=== PATIENT | female | born 1960 ===

== ENCOUNTER 2023-11-03 16:17 | Outpatient (OUT) | payer OTHER, SELFPAY ==
--- NOTE | 2023-11-03 | MM_ITS ---
Patient Name: ALO HEREDIA MR#: [id number] : 1960 Exam Date: 11/03/2023 Ordering Doctor: DR JUAN DUNHAM M.D. RADIOLOGY REPORT PROCEDURE: MM TOMOSYNTHESIS SCREENING BI COMPARISON: None. INDICATIONS: Lavon Screening Mammogram Calculator Name NCI Breast Cancer Risk Assessment Tool 5 Year Breast Cancer Risk 1.10% Lifetime Breast Cancer Risk 5.20% Personal Breast Cancer No Personal Ovarian Cancer No Treatments None Family Cancers Father with throat/lung cancer at age 70; Mother with lung cancer at age 75. LOCATION: The [facility] BREAST COMPOSITION: There are scattered areas of fibroglandular density. FINDINGS: DIAGNOSTIC CATEGORY 2--BENIGN FINDING: Scattered benign-appearing calcifications are present. Scattered benign-appearing lymph nodes are present. RIGHT BREAST: No significant suspicious finding. LEFT BREAST: No significant suspicious finding. RECOMMENDATIONS: ROUTINE MAMMOGRAM AND CLINICAL EVALUATION IN 12 MONTHS. PLEASE NOTE: A NORMAL MAMMOGRAM DOES NOT EXCLUDE THE POSSIBILITY OF BREAST CANCER. A CLINICALLY SUSPICIOUS PALPABLE LUMP SHOULD BE BIOPSIED. Dictated by: Sohail Santana MD on 11/24/2023 at 15:19 Approved by: Sohail Santana MD on 11/24/2023 at 15:21
== END 2023-11-03 16:18 | disposition home or self-care (01) ==
LOC: MAMMO 16:17
PROVIDERS: PCP Family Medicine; Visit Provider Family Medicine
DX: Z12.31 Encounter for screening mammogram for malignant neoplasm of breast (principal); Z80.1 Family history of malignant neoplasm of trachea, bronchus and lung; Z80.8 Family history of malignant neoplasm of other organs or systems
CPT/HCPCS: 77063; 77067

== ENCOUNTER 2024-03-21 16:30 | Outpatient (OUT) | payer OTHER, SELFPAY ==
--- NOTE | 2024-03-21 | XR_ITS ---
The [address] [address] Patient Name: ALO HEREDIA MRN: [id number] date: 1960 Sex: F Assigned Patient Location: [facility] Current Patient Location: Accession/Order Number: [id number] Exam Date: 03/21/2024 16:50 Report Date: 03/23/2024 07:23 At the request of: ALO BETHEA Procedure: XR ankle LT min 3V PROCEDURE: XR ankle LT min 3V COMPARISON: None. HISTORY: swollen left ankle FINDINGS: BONES:No fracture, acute abnormality, or significant arthropathy. SOFT TISSUES:Lateral ankle soft tissue swelling EFFUSION:Small joint effusion OTHER: Negative. XR/XR ankle LT min 3V IMPRESSION: Soft tissue swelling, no acute fracture Electronically authenticated by: SCOTT MOSELEY Date: 03/23/2024 07:23
--- OUTSIDE RECORDS SUMMARY | 2024-03-21 16:38 | XMS_ITS | CCD ---
Author Organization [facility] LICENSED REACTOR OPERATOR [facility] Care Team Providers Care Corporate Event Planner Name Role Phone JUAN DUNHAM Attending Unavailable Encounters Encounter Date Encounter Type Care Provider Facility Start: 12-15-2023 End: 12-15-2023 ambulatory JUAN DUNHAM Not Available Payers Date Payer Category Payer Private Health Insurance [id number] 1960 Unknown [id number] Summary Purpose Family History No Family History Records Found Advance Directives No Advanced Directives Records Found Additional Source Comments INFORMATION SOURCE (unrecogn ized section and content) DATE CREATED AUTHOR 12/18/2023 [facility] EPIC FOR RECORDS PERTAINING TO PATIENTS WHO ARE OR HAVE BEEN ENROLLED IN A CHEMICAL DEPENDENCY/SUBSTANCEABUSE PROGRAM, SOME INFORMATION MAY BE OMITTED. This clinical summary was aggregated from multiple sources. Caution should be exercised in using it in the provision of clinical care. This summary normalizes information from multiple sources, and as a consequence, information in this document may materially change the coding, format and clinical context of patient data. In addition, data may be omitted in some cases. CLINICAL DECISIONS SHOULD BE BASED ON THE PRIMARY CLINICAL RECORDS. [facility] [employer] ([email or web address]). provides no warranty or guarantee of the accuracy or completeness of information in this document.
== END 2024-03-21 16:31 | disposition home or self-care (01) ==
LOC: RAD 16:32
PROVIDERS: PCP Family Medicine; Visit Provider Physician Assistant
DX: M25.472 Effusion, left ankle (principal); M25.572 Pain in left ankle and joints of left foot
CPT/HCPCS: 73610

== ENCOUNTER 2024-11-03 15:56 | Outpatient (OUT) | payer OTHER, SELFPAY ==
--- NOTE | 2024-11-03 15:58 | MM_ITS ---
Patient Name: ALO HEREDIA MR#: [id number] : 1960 Exam Date: 11/03/2024 Ordering Doctor: DR JUAN DUNHAM M.D. RADIOLOGY REPORT PROCEDURE: MM TOMOSYNTHESIS SCREENING BI COMPARISON: MM TOMOSYNTHESIS SCREENING BI, 11/03/2023. INDICATIONS: Screening for malignant neoplasm Calculator Name NCI Breast Cancer Risk Assessment Tool 5 Year Breast Cancer Risk 1.10% Lifetime Breast Cancer Risk 5.00% Personal Breast Cancer No Personal Ovarian Cancer No Treatments None Family Cancers Father with throat/lung cancer at age 70; Mother with lung cancer at age 75. LOCATION: [facility] BREAST COMPOSITION: There are scattered areas of fibroglandular density. FINDINGS: RIGHT BREAST: No significant suspicious finding. LEFT BREAST: No significant suspicious finding. DIAGNOSTIC CATEGORY 1--NEGATIVE. RECOMMENDATIONS: ROUTINE MAMMOGRAM AND CLINICAL EVALUATION IN 12 MONTHS. PLEASE NOTE: A NORMAL MAMMOGRAM DOES NOT EXCLUDE THE POSSIBILITY OF BREAST CANCER. A CLINICALLY SUSPICIOUS PALPABLE LUMP SHOULD BE BIOPSIED. Dictated by: Contreras Goodman DO on 11/03/2024 at 16:19 Approved by: Contreras Goodman DO on 11/03/2024 at 16:23
--- OUTSIDE RECORDS SUMMARY | 2024-11-03 16:00 | XMS_ITS | Encounter Summary ---
Author Organization [facility] Address [address] [place] [address] Care Team Providers Care Certified Professional Midwife Name Role Phone Obdulio Stauffer MD Primary Care Provider [phone] Encounter Details Date Type Department Care Team (Late st Contact Info) Description 01/12/2024 Abstract [facility] [address] [facility] [address] [place] [address] Obdulio Stauffer MD [address] [facility] 110 [place], [place] [id number] Social History Tobacco Use Types Packs/Day Years Used Date Smoking Tobacco: Never Smokeless Tobacco: Never Alcohol Use Standard Drinks/Week Comments Never 0 (1 standard drink = 0.6 oz pur e alcohol) B1300 Health Literacy Answer Date Recor ded How often do you need to hav e someone help you when you read instructions, pamphlets, or other written material from your doctor or pharmacy? Never 12/11/2023 Social Connection and Isolat ion Panel [NHANES] Answer Date Recorded In a typical week, how many times do you talk on the phone with family, friends, or neighbors? More than three times a week 12/11/2023 How often do you get togethe r with friends or relatives? Three times a week 12/11/2023 How often do you attend chur ch or mandaeism services? 1 to 4 times per year 12/11/2023 Do you belong to any clubs o r organizations such as buddhist groups, unions, fraternal or athletic groups, or school groups? Yes 12/11/2023 How often do you attend meet ings of the clubs or organizations you belong to? 1 to 4 times per year 12/11/2023 Are you , , di vorced, , never , or living with a partner? 12/11/2023 AUDIT-C Answer Date Recorded Q1: How often do you have a drink containing alcohol? Never 12/11/2023 Q2: How many drinks containi ng alcohol do you have on a typical day when you are drinking? Patient does not drink Q3: How often do you have si x or more drinks on one occasion? Never 12/11/2023 Overall Financial Resource Strain (CARDIA) Answe r Date Recorded How hard is it for you to pa y for the very basics like food, housing, medical care, and heating? Not very hard 12/11/2023 [facility] of Occupat ional Health - Occupational Stress Questionnaire Answer Date Recorded Do you feel stress - tense, restless, nervous, or anxious, or unable to sleep at night because your mind is troubled all the time - these days? Not at all 12/11/2023 Exercise Vital Sign Answer Date Recorde d On average, how many days pe r week do you engage in moderate to strenuous exercise (like a brisk walk)? 3 days 12/11/2023 On average, how many minutes do you engage in exercise at this level? 20 min 12/11/2023 Hunger Vital Sign Answer Date Recorded Within the past 12 months, y ou worried that your food would run out before you got the money to buy more. Never true 12/11/19 24 Within the past 12 months, t he food you bought just didn't last and you didn't have money to get more. Never true 12/11/2023 PRAPARE - Transportation Answer Date Re corded In the past 12 months, has l ack of transportation kept you from medical appointments or from getting medications? No 11/16 In the past 12 months, has l ack of transportation kept you from meetings, work, or from getting things needed for daily living? No 12/11/2023 Housing Stability Vital Sign Answer Olaf e Recorded In the last 12 months, was t here a time when you were not able to pay the mortgage or rent on time? No 12/11/2023 Number of Times Moved in the Last Year Not on fi le 12/11/2023 At any time in the past 12 m [facility], were you homeless or living in a nursing home (including now)? No 12/11/2023 Comments Unknown Sex and Gender Information Value Date Recorded Sex Assigned at Not on file Legal Sex Female 11:48 PM EDT Gender Identity Not on file Sexual Orientation Not on file documented as of this encounter Plan of Treatment Not on file documented as of this encounter Visit Diagnoses Not on filedocumented in this encounter Care Teams Certified Professional Midwife Relationship Specialty Start Date End Date Obdulio Stauffer MD [address] [place] [id number] PCP - General Family Medicine 09/23/22 documented as of this encounter
--- OUTSIDE RECORDS SUMMARY | 2024-11-03 16:00 | XMS_ITS | Clinical Summary ---
Author Organization [facility] Address [address] [place] [address] Care Team Providers Care Stations Superintendent Name Role Phone Obdulio Dunham MD Primary Care Provider [phone] Allergies No known active allergies Medications rosuvastatin (Crestor) 20 MG tabletIndications:Hyperl ipidemia, unspecified hyperlipidemia type Take 1 tablet (20 mg) by mouth 1 (one) time each day at the same time 360 tablet 12/15/19 24 025 Active baclofen (Lioresal) 10 MG tabletIndications:Tensio n headache Take 1 tablet (10 mg) by mouth in the morning and 1 tablet (10 mg) in the evening and 1 tablet (10 mg) before bedtime. 90 tablet 07/04/19 25 Active ezetimibe (Zetia) 10 MG tabletIndications:Pure hypercholesterolemia Take 1 tablet (10 mg) by mouth Daily 30 tablet 5 09/23/19 25 025 Active Active Problems Problem Noted Date Diagnosed Date Chronic nonintractable headache 07/04/2024 Family history of neoplasm of brain 07/04/2024 Tension headache 07/04/2024 Encounter for well adult exam without abnormal f indings 12/15/2023 Assessment & Plan (12/15/2023 4:16 PM EDT): Modest Alcohol consumption No Tobacco Seat Belt use Exercise Regularly No Text Drive Social Accountability Vitamin D and calcium Vitamin D 400 international units, 2000 international units, 5000IUnits Folic Acid B12 Blood count energy Hyperlipidemia 10/20/2023 Assessment & Plan (12/15/2023 4:09 PM EDT): This is a chronic medical condition that is stable since last assessment. No changes in treatment are suggested at this time. Continue Current meds. 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 Resolved Problems Problem Noted Date Diagnosed Date Resolved Date Encounter for vitamin deficiency screening 01/11/2024 01/11/2024 Encounters Date Type Department Care Team Description 09/19/2024 Telephone [facility] [address] [facility] [address] [place] [address] Obdulio Dunham MD from Last 3 Months Family History Medical History Relation Name Comments No Known Problems Daughter Lung cancer Father Hypertension Mother Lung cancer Mother No Known Problems Son 1 No Known Problems Son 2 Relation Name Status Comments Daughter Alive Father Mother Son 1 Alive Son 2 Alive Social History Tobacco Use Types Packs/Day Years [...] 12/11/2023 How often do you attend chur or christian services? 1 to 4 times per year 12/11/2023 Do you belong to any clubs o r organizations such as samaritan groups, unions, fraternal or athletic groups, or [...] care, and heating? Not very hard 12/11/2023 [facility] of Occupat ional Health - Occupational Stress [...] any time in the past 12 m [facility], were you homeless or living in a jail (including now)? No 12/11/2023 Comments Unknown Sex and Gender Information Value Date Recorded Sex Assigned at Not on file Legal Sex Female 11:48 PM EDT Gender Identity Not on file Sexual Orientation Not on file Last Filed Vital Signs Vital Sign Reading Time Taken Comments Blood Pressure 128/70 07/04/2024 2:51 PM EST Pulse 90 07/04/2024 2:51 PM EST Temperature - - Respiratory Rate 16 12/15/2023 4:02 PM EDT Oxygen Saturation 98% 07/04/2024 2:51 PM EST Inhaled Oxygen Concentration - - Weight 72.1 kg (159 lb) 07/04/2024 2:51 PM EST Height 162.6 cm (5' 4 ) 07/04/2024 2:51 PM EST Body Mass Index 27.29 07/04/2024 2:51 PM EST Plan of Treatment Health Maintenance Due Date Last Done Comments CT Colonography 1960 Colonoscopy 1960 Colorectal Cancer Screening 1960 FIT-DNA 1962 FIT 1962 FOBT 1960 Sigmoidoscopy 1960 Pap Smear 1983 Cervical Cancer Screening 1992 HPV/Cotest 1992 Mammogram 11/23/2024 11/24/2023, 04/17, 12/06/2019 Influenza Vaccine (Season Ended) 2025 Procedures Procedure Name Priority Date/Time Associated Diagnosis Comments MM TOMOSYNTHESIS SCREENING BI 11/24/2023 3:21 PM EDT from Last 3 Months or Most Recently Relevant to Health Maintenance Results * MM TOMOSYNTHESIS SCREENING BI (11/24/2023 3:21 PM EDT) Anatomical Region Laterality Modality Other 11/24/2023 3:21 PM EDT Narrative 11/24/2023 3:22 [place] [address] Mammography Report Signed Patient: Alo Heredia MR#: [id number] : 1960 Acct:[id number] Age/Sex: 63 / F ADM Date: 11/03/23 Loc: MAMMO Attending Dr: OBDULIO DUNHAM Ordering Physician: OBDULIO DUNHAM Results: Date of Service: 11/03/23 Follow Up: Procedure(s): MM tomosynthesis screening BI Accession Number(s): [id number] cc: OBDULIO DUNHAM Patient Name: ALO HEREDIA MR#: [id number] : 1960 Exam Date: 11/03/2023 Ordering Doctor: DR OBDULIO DUNHAM M.D. RADIOLOGY REPORT PROCEDURE: MM TOMOSYNTHESIS SCREENING BI COMPARISON: None. INDICATIONS: Lavon Screening Mammogram Calculator Name NCI Breast Cancer Risk Assessment Tool 5 Year Breast Cancer Risk 1.10% Lifetime Breast Cancer Risk 5.20% Personal Breast Cancer No Personal Ovarian Cancer No Treatments None Family Cancers Father with throat/lung cancer at age 70; Mother with lung cancer at age 75. LOCATION: The [facility] [place] BREAST COMPOSITION: There are scattered areas of fibroglandular density. FINDINGS: DIAGNOSTIC CATEGORY 2--BENIGN FINDING: Scattered benign-appearing calcifications are present. Scattered benign-appearing lymph nodes are present. RIGHT BREAST: No significant suspicious finding. LEFT BREAST: No significant suspicious finding. RECOMMENDATIONS: ROUTINE MAMMOGRAM AND CLINICAL EVALUATION IN 12 MONTHS. PLEASE NOTE: A NORMAL MAMMOGRAM DOES NOT EXCLUDE THE POSSIBILITY OF BREAST CANCER. A CLINICALLY SUSPICIOUS PALPABLE LUMP SHOULD BE BIOPSIED. Dictated by: Sohail Santana MD on 11/24/2023 at 15:19 Approved by: Sohail Santana MD on 11/24/2023 at 15:21 Dictated By: Sohail Santana M.D. Signed By: 11/24/23 1522 DD/ 1521 TD/TT: Biological Aide: Procedure Note Radiology, Radiologist, - 11/24/2023 [place] [address] Mammography Report Signed Patient: Alo HerediaMR#: [id number] : 1960cct:[id number] Age/Sex: 63 / FADM Date: 11/03/23 Loc: MAMMO Attending Dr: OBDULIO DUNHAM Ordering Physician: Ricardo DUNHAMults: Date of Service: 11/03/23Follow Up: Procedure(s): MM tomosynthesis screening BI Accession Number(s): [id number] cc: OBDULIO DUNHAM Patient Name: ALO HEREDIA MR#: [id number] : 1960 Exam Date: 11/03/2023 Ordering Doctor: DR OBDULIO DUNHAM M.D. RADIOLOGY REPORT PROCEDURE: MM TOMOSYNTHESIS SCREENING BI COMPARISON: None. INDICATIONS: Lavon Screening Mammogram Calculator Name NCI Breast Cancer Risk Assessment Tool 5 Year Breast Cancer Risk 1.10% Lifetime Breast Cancer Risk 5.20% Personal Breast Cancer No Personal Ovarian Cancer No Treatments None Family Cancers Father with throat/lung cancer at age 70; Mother withlung cancer at age 75. LOCATION: [facility] [place] BREAST COMPOSITION: There are scattered areas of fibroglandulardensity. FINDINGS: DIAGNOSTIC CATEGORY 2--BENIGN FINDING: Scattered benign-appearing calcifications are present. Scattered benign-appearing lymph nodes are present. RIGHT BREAST: No significant suspicious finding. LEFT BREAST: No significant suspicious finding. RECOMMENDATIONS: ROUTINE MAMMOGRAM AND CLINICAL EVALUATION IN 12 MONTHS. PLEASE NOTE: A NORMAL MAMMOGRAM DOES NOT EXCLUDE THE POSSIBILITY OFBREAST CANCER. A CLINICALLY SUSPICIOUS PALPABLE LUMP SHOULD BE BIOPSIED. Dictated by: Sohail Santana MD on 11/24/2023 at 15:19 Approved by: Sohail Santana MD on 11/24/2023 at 15:21 Dictated By: Sohail Santana M.D. Signed By:11/24/23 1522 DD/ 1521 TD/TT: Biological Aide: Obdulio Dunham MD [facility] Final Result from Last 3 Months or Most Recently Relevant to Health Maintenance Insurance [employer] Care Teams Stations Superintendent Relationship Specialty Start Date End Date Obdulio Dunham MD [address] [place] [address] [place] [address] PCP - General Family Medicine 09/23/22
--- OUTSIDE RECORDS SUMMARY | 2024-11-03 16:00 | XMS_ITS | Encounter Summary ---
Author Organization [facility] Address [address] [place] [address] Care Team Providers Care Bronc Buster Name Role Phone Obdulio Stauffer MD Primary Care Provider [phone] Encounter Details Date Type Department Care Team (Late st Contact Info) Description 03/23/2024 Orders Only [facility] [address] [facility] [address] [place] [id number] Migdalia Wheatley, PA [address] [facility] [address] [place] [address] Swollen L ankle; Acute left ankle pain Social History Tobacco Use Types Packs/Day Years [...] often do you attend chur ch or rastafarian services? 1 to 4 times per year 12/11/2023 Do you belong to any clubs o r organizations such as shinto groups, unions, fraternal or athletic groups, or [...] care, and heating? Not very hard 12/11/2023 [facility] of Occupat ional Health - Occupational Stress [...] any time in the past 12 m [facility], were you homeless or living in a penitentiary (including now)? No 12/11/2023 Comments Unknown Sex and Gender Information Value Date Recorded Sex Assigned at Not on file Legal Sex Female 11:48 PM EDT Gender Identity Not on file Sexual Orientation Not on file documented as of this encounter Plan of Treatment Not on file documented as of this encounter Procedures Procedure Name Priority Date/Time Associated Diagnosis Comments XR ANKLE 3+ VIEWS LEFT Routine 2024 Swollen L ankle Acute left ankle pain documented in this encounter Results * XR ankle 3+ views left (2024) 2024 Narrative Migdalia Wheatley PA - 03/23/2024 9:39 AM EST Soft tissue swelling, no acute fracture us Migdalia FLORES IMG XR PROCEDURES Final Result documented in this encounter Visit Diagnoses Diagnosis Swollen L ankle Effusion of ankle and foot joint Acute left ankle pain documented in this encounter Care Teams Bronc Buster Relationship Specialty Start Date End Date Obdulio Stauffer MD [address] [place] [address] PCP - General Family Medicine 09/23/22 documented as of this encounter
--- OUTSIDE RECORDS SUMMARY | 2024-11-03 16:00 | XMS_ITS | Encounter Summary ---
Author Organization [facility] Address [address] [place] [address] Care Team Providers Care Market Research Lead Name Role Phone Obdulio Dunham MD Primary Care Provider [phone] Encounter Details Date Type Department Care Team (Late st Contact Info) Description 03/23/2024 [facility] Result Encounter [facility] External Department Unsolicited Alo Wheatley, PA [address] [facility] [address] [place] [address] Social History Tobacco Use Types Packs/Day Years [...] often do you attend chur ch or hindu services? 1 to 4 times per year 12/11/2023 Do you belong to any clubs o r organizations such as restorationism groups, unions, fraternal or athletic groups, or [...] care, and heating? Not very hard 12/11/2023 [facility] of Occupat ional Health - Occupational Stress [...] any time in the past 12 m [facility], were you homeless or living in a prison (including now)? No 12/11/2023 Comments Unknown Sex and Gender Information Value Date Recorded Sex Assigned at Not on file Legal Sex Female 11:48 PM EDT Gender Identity Not on file Sexual Orientation Not on file documented as of this encounter Plan of Treatment Not on file documented as of this encounter Procedures Procedure Name Priority Date/Time Associated Diagnosis Comments XR ANKLE LT MIN 3V 03/23/2024 7: 23 AM EST documented in this encounter Results * XR ANKLE LT MIN 3V (03/23/2024 7:23 AM EST) Anatomical Region Laterality Modality Other 03/23/2024 7:23 AM EST Narrative 03/23/2024 7:26 [place] [address] XRay Report Signed Patient: ALO HEREDIA MR#: [id number] : 1960 Acct:[id number] Age/Sex: 64 / F ADM Date: 03/21/24 Loc: RAD Attending Dr: ALO WHEATLEY Ordering Physician: ALO WHEATLEY Date of Service: 03/21/24 Procedure(s): XR ankle LT min 3V Accession Number(s): [id number] cc: OBDULIO DUNHAM ; ALO WHEATLEY [place] [address] Patient Name: ALO HEREDIA MRN: [id number] date: 1960 Sex: F Assigned Patient Location: RAD Current Patient Location: Accession/Order Number: [id number] Exam Date: 2024 16:50 Report Date: 03/23/2024 07:23 At the request of: ALO WHEATLEY Procedure: XR ankle LT min 3V PROCEDURE: XR ankle LT min 3V COMPARISON: None. HISTORY: swollen left ankle FINDINGS: BONES:No fracture, acute abnormality, or significant arthropathy. SOFT TISSUES:Lateral ankle soft tissue swelling EFFUSION:Small joint effusion OTHER: Negative. XR/XR ankle LT min 3V IMPRESSION: Soft tissue swelling, no acute fracture Electronically authenticated by: SCOTT MOSELEY Date: 03/23/2024 07:23 Dictated By: Scott Moseley M.D. Signed By: 03/23/24725 DD/ 2 TD/TT: Functional Tester: Procedure Note Radiology, Radiologist, - 03/23/2024 [place] [address] XRay Report Signed Patient: ALO HEREDIA SMR#: [id number] : 1960cct:[id number] Age/Sex: 64 / FADM Date: 03/21/24 Loc: [facility] Attending Dr: ALO WHEATLEY Ordering Physician: ALO WHEATLEY Date of Service: 03/21/24 Procedure(s): XR ankle LT min 3V Accession Number(s): [id number] cc: OBDULIO DUNHAM ; ALO WHEATLEY [place] [address] Patient Name: ALO HEREDIA MRN: [id number] date: 1960 Sex: F Assigned Patient [facility]: [facility] Current Patient Location: Accession/Order Number: [id number] Exam Date: 2024 16:50 Report Date: 03/23/2024 07:23 At the request of: ALO WHEATLEY Procedure: XR ankle LT min 3V PROCEDURE: XR ankle LT min 3V COMPARISON: None. HISTORY: swollen left ankle FINDINGS: BONES:No fracture, acute abnormality, or significant arthropathy. SOFT TISSUES:Lateral ankle soft tissue swelling EFFUSION:Small joint effusion OTHER: Negative. XR/XR ankle LT min 3V IMPRESSION: Soft tissue swelling, no acute fracture Electronically authenticated by: SCOTT MOSELEY Date: 03/23/2024 07:23 Dictated By: Scott Moseley M.D. Signed By:03/23/24725 DD/ 2 TD/TT: Functional Tester: Alo FLORES [facility] Final Result documented in this encounter Visit Diagnoses Not on filedocumented in this encounter Care Teams Market Research Lead Relationship Specialty Start Date End Date Obdulio Dunham MD [address] [facility] [address] [place] [address] PCP - General Family Medicine 09/23/22 documented as of this encounter
--- OUTSIDE RECORDS SUMMARY | 2024-11-03 16:00 | XMS_ITS | Encounter Summary ---
Author Organization [facility] Address [address] [place] [address] Care Team Providers Care Gasoline Finisher Name Role Phone Obdulio Dunham MD Primary Care Provider [phone] Encounter Details Date Type Department Care Team (Late st Contact Info) Description 11/24/2023 Clinisync Result Encounter [facility] External Department Unsolicited Obdulio Dunham MD [address] [facility] [address] [place], [place] [id number] Social History Tobacco Use Types Packs/Day Years Used Date Smoking Tobacco: Never Smokeless Tobacco: Never Alcohol Use Standard Drinks/Week Comments Never 0 (1 standard drink = 0.6 oz pur e alcohol) Comments Unknown Sex and Gender Information Value Date Recorded Sex Assigned at Not on file Legal Sex Female 11:48 PM EDT Gender Identity Not on file Sexual Orientation Not on file documented as of this encounter Plan of Treatment Not on file documented as of this encounter Procedures Procedure Name Priority Date/Time Associated Diagnosis Comments MM TOMOSYNTHESIS SCREENING BI 11/24/2023 3:21 PM EDT documented in this encounter Results * MM TOMOSYNTHESIS SCREENING BI (11/24/2023 3:21 PM EDT) Anatomical Region Laterality Modality Other 11/24/2023 3:21 PM EDT Narrative 11/24/2023 3:22 PM EDT The [address] [address] Mammography Report Signed Patient: Alo Heredia MR#: [id number] : 1960 Acct:[id number] Age/Sex: 63 / F ADM Date: 11/03/23 Loc: MAMMO Attending Dr: OBDULIO DUNHAM Ordering Physician: OBDULIO DUNHAM Results: Date of Service: 11/03/23 Follow Up: Procedure(s): MM tomosynthesis screening BI Accession Number(s): [id number] cc: OBDULIO DUNHAM Patient Name: ALO HEREDIA MR#: [id number] : 1960 Exam Date: 11/03/2023 Ordering Doctor: [...] lung cancer at age 77. LOCATION: The [facility] BREAST COMPOSITION: There are scattered areas of [...] Signed By: 11/24/23 1522 DD/ 1521 TD/TT: Numberer And Wirer: Procedure Note Radiology, Radiologist, MD - 11/24/2023 [place] [address] Mammography Report Signed Patient: Alo HerediaMR#: [id number] : 1960cct:[id number] Age/Sex: 63 / FADM Date: 11/03/23 Loc: MAMMO Attending Dr: OBDULIO DUNHAM Ordering Physician: CHARLA,RUGENResults: Date of Service: 11/03/23Follow Up: Procedure(s): MM tomosynthesis screening BI Accession Number(s): [id number] cc: CHARLAJAMMIE DavilaMELODIE Patient Name: ALO HEREDIA MR#: [id number] : 1960 Exam Date: 11/03/2023 Ordering Doctor: [...] withlung cancer at age 77. LOCATION: The [facility] BREAST COMPOSITION: There are scattered areas of [...] M.D. Signed By:11/24/23 1522 DD/ 1521 TD/TT: Numberer And Wirer: us Obdulio Dunham MD [facility] Final Result documented in this encounter Visit Diagnoses Not on filedocumented in this encounter Care Teams Gasoline Finisher Relationship Specialty Start Date End Date Obdulio Dunham MD [address] [place] [address] PCP - General Family Medicine 09/23/22 documented as of this encounter
--- OUTSIDE RECORDS SUMMARY | 2024-11-03 16:00 | XMS_ITS | Encounter Summary ---
Author Organization [facility] Address [address] [place] [address] Care Team Providers Care Cold Saw Operator Name Role Phone Obdulio Stauffer MD Primary Care Provider [phone] Encounter Details Date Type Department Care Team (Late st Contact Info) Description 12/17/2023 Abstract [facility] 112 [facility] 110 [place] [address] Obdulio Stauffer MD 112 [facility] 110 [place], [place] [id number] Social History Tobacco Use Types Packs/Day Years [...] often do you attend chur ch or faith services? 1 to 4 times per year 12/11/2023 Do you belong to any clubs o r organizations such as gnosticism groups, unions, fraternal or athletic groups, or [...] care, and heating? Not very hard 12/11/2023 [facility] [place] of Occupat ional Health - Occupational Stress [...] any time in the past 12 m [facility], were you homeless or living in a detention (including now)? No 12/11/2023 Comments Unknown Sex and Gender Information Value Date Recorded Sex Assigned at Not on file Legal Sex Female 11:48 PM EDT Gender Identity Not on file Sexual Orientation Not on file documented as of this encounter Plan of Treatment Not on file documented as of this encounter Visit Diagnoses Not on filedocumented in this encounter Care Teams Cold Saw Operator Relationship Specialty Start Date End Date Obdulio Stauffer MD [address] [phone] PCP - General Family Medicine 09/23/22 documented as of this encounter
--- OUTSIDE RECORDS SUMMARY | 2024-11-03 16:00 | XMS_ITS | Encounter Summary ---
Author Organization [facility] Address [address] [place] [address] Care Team Providers Care Bulk Plant Manager Name Role Phone Obdulio Stauffer MD Primary Care Provider Encounter Details Date Type Department Care Team (Late st Contact Info) Description 03/23/2024 Abstract [facility] 112 [facility] 110 [place] [address] Obdulio Stauffer MD 112 [facility] 110 [place] [address] Social History Tobacco Use Types Packs/Day Years [...] often do you attend chur ch or religion services? 1 to 4 times per year 12/11/2023 Do you belong to any clubs o r organizations such as holiness groups, unions, fraternal or athletic groups, or [...] care, and heating? Not very hard 12/11/2023 [facility] of Occupat ional Health - Occupational Stress [...] any time in the past 12 m [facility], were you homeless or living in a skilled nursing (including now)? No 12/11/2023 Comments Unknown Sex and Gender Information Value Date Recorded Sex Assigned at Not on file Legal Sex Female 11:48 PM EDT Gender Identity Not on file Sexual Orientation Not on file documented as of this encounter Plan of Treatment Not on file documented as of this encounter Visit Diagnoses Not on filedocumented in this encounter Care Teams Bulk Plant Manager Relationship Specialty Start Date End Date Obdulio Stauffer MD [address] [phone] PCP - General Family Medicine 09/23/22 documented as of this encounter
== END 2024-11-03 15:57 | disposition home or self-care (01) ==
LOC: MAMMO 15:56
PROVIDERS: PCP Family Medicine; Visit Provider Family Medicine
DX: Z12.31 Encounter for screening mammogram for malignant neoplasm of breast (principal); Z80.1 Family history of malignant neoplasm of trachea, bronchus and lung; Z80.8 Family history of malignant neoplasm of other organs or systems
CPT/HCPCS: 77063; 77067